=== PATIENT | female | born 1940 | race Caucasian/White ===

== ENCOUNTER 2019-09-19 09:48 | Outpatient (CLI) | payer MEDICARE, BC, SELFPAY ==
--- NOTE | ~2019-09-19 | MMUS_ITS ---
EXAMINATION: MM diagnostic anna LT w ghulam, US breast LT complete HISTORY: New clustered left microcalcifications reported on 09/08/2019 screening mammogram TECHNIQUE: Additional 3-D ML tomosynthesis images and magnification view of the left breast were perf ormed and synthetic 2-D images were generated. CAD analysis was submitted and interpreted. High resol ution complete left breast ultrasound was performed. COMPARISON: 09/08/2019 left digital screening mammogram FINDINGS: MAMMOGRAPHIC FINDINGS: There is a cluster of grouped microcalcifications in the upper mid left breast. There are scattered benign calcifications of the left breast otherwise. Because of the dense heterogeneous stroma, the left breast ultrasound examination was performed. ULTRASOUND: There is an approximately 6 mm irregular hypoechoic area at 9:00 3 cm from the nipple with posterior shadowing. Ultrasound-guided biopsy of this area is recommended. Scattered subcentimeter cysts are noted elsewhere. No other suspicious mass or shadowing is evident. IMPRESSION: 1. 6 mm irregular hypoechoic area with posterior shadowing at 9:00 3 cm from nipple 2. Ultrasound-guided biopsy is recommended at 9:00 3 cm from nipple 3. Stereotactic biopsy of grouped microcalcifications in upper mid right breast BI-RADS category 4, suspicious findings. Dr. Carnes telephoned the report and ultrasound guided and stereotactic biopsy recommendations of 9:00 ultrasound finding and upper mid clustered microcalcifications, respectively, to Blank Baum at Dr. Greenfield's office on 09/19/2019 at 1157 hours Reviewed, dictated and finalized at location A. SERVICES PROFESSIONAL IMPRESSION: 1. 6 mm irregular hypoechoic area with posterior shadowing at 9:00 3 cm from ni pple 2. Ultrasound-guided biopsy is recommended at 9:00 3 cm from nipple 3. Stereotactic biopsy of grouped microcalcifications in upper mid right breast BI-RADS category 4, suspicious findings. Dr. Carnes telephoned the report and ultrasound guided and stereotactic biopsy r ecommendations of 9:00 ultrasound finding and upper mid clustered microcalcific ations, respectively, to Blank Baum at Dr. Greenfield's office on 09/19/2019 at 11 57 hours
== END 2019-09-19 09:49 | disposition home or self-care (01) ==
LOC: CHSIMG 09:51
PROVIDERS: PCP Family Medicine; Visit Provider Internal Medicine
DX: C50.111 Malignant neoplasm of central portion of right female breast (principal); Z17.0 Estrogen receptor positive status [ER+]; Z90.11 Acquired absence of right breast and nipple
CPT/HCPCS: 76641; 77061; 77065; G0279

== ENCOUNTER 2019-10-16 10:04 | Outpatient (CLI) | payer MEDICARE, BC, SELFPAY ==
--- NOTE | ~2019-10-16 | US_ITS ---
US breast LT limited 10/16/2019 12:43 Indication: Left breast abnormality seen on recent ultrasound. Biopsy recommended. Procedure: High-resolution Limited left breast ultrasound Comparison: 09/19/2019 Findings: At 9:00, 3 cm from the nipple, there are 2 adjacent cysts, the largest measuring 4 mm, like ly complicated with low level internal echoes. There is posterior acoustic enhancement. These corresp ond to the area of abnormality seen on prior ultrasound. Biopsy canceled and short-term six-month int erval diagnostic left mammogram and ultrasound recommended for surveillance. Impression: 1: 2 cysts are identified at 9:00, 3 cm from the nipple corresponding to the previous area of abnorma lity on ultrasound performed 09/19/2019. Biopsy canceled. Short-term follow-up in 6 months recommended to ensure stability. BI-RADS CATEGORY 3-PROBABLY BENIGN FINDING RECOMMENDATION: Six-month follow-up diagnostic left mammogram and ultrasound recommended. Reviewed, dictated and finalized at location A. [employer] IN[employer]E [employer]PARER Impression: 1: 2 cysts are identified at 9:00, 3 cm from the nipple corresponding to the pr evious area of abnormality on ultrasound performed 09/19/2019. Biopsy canceled. Short-term follow-up in 6 months recommended to ensure stability. BI-RADS CATEGORY 3-PROBABLY BENIGN FINDING RECOMMENDATION: Six-month follow-up diagnostic left mammogram and ultrasound re commended.
--- NOTE | ~2019-10-16 | MM_ITS ---
MM stereotactic bx LT, MM post biopsy invasive LT, MM stereotactic specimen LT 10/16/2019 11:35 (accession [id number]), 10/16/2019 11:40 (accession [id number]), 10/16/2019 11:36 (accession [id number]) EXAMINATION: MM stereotactic bx LT, MM post biopsy invasive LT, MM s tereotactic specimen LT DATE: Rafael Mazariegos M.D. INDICATION: Abnormal mammogram with [ in the breast. Stereotactic core biopsy is requested evaluate for malignancy.] TECHNIQUE AND FINDINGS: The risks and potential benefits of the procedure were discussed with the patient and written informe d consent was obtained. The patient was placed in the prone position clustered at the table with the left breast in craniocaudal compression, and the area of interest was localized and targeted utilizi ng digital imaging with stereotaxis. After sterile preparation of the skin, 1% lidocaine was utilized for local anesthesia at the skin pun cture site and 1% lidocaine with epinephrine was utilized for deeper local anesthesia/is about the bi opsy site. A 9G Spireon vacuum assisted biopsy needle was advanced to the level of the calcification o f interest from a cephalad approach utilizing stereotactic guidance and a total of 6 tissue core biop sies were obtained. A specimen radiograph demonstrates that the calcifications of interest are included within the tissue cores. A tissue marker clip was then placed at the biopsy site. The needle was removed and hemosta sis was achieved. The patient tolerated the procedure well and there is no evidence of significant i mmediate complication. The patient was given verbal as well as written postprocedural instructions p rior to discharge from the department. Tissue cores were submitted to surgical pathology for histolo gic analysis. A 2-view left unilateral digital mammogram was obtained post procedure and this demonstrates that the tissue marker clip is in expected position.] IMPRESSION: 1. Successful stereotactic biopsy of calcifications in the upper outer quadrant of the right breast, followed by tissue marker clip placement. Please refer to pathology report for histologic analysis. Reviewed, dictated and finalized at location A. EL OT IMPRESSION: 1. Successful stereotactic biopsy of calcifications in the upper outer quadran t of the right breast, followed by tissue marker clip placement. Please refer to pathology report for histologic analysis. IMPRESSION: 1. Successful stereotactic biopsy of calcifications in the upper outer quadran t of the right breast, followed by tissue marker clip placement. Please refer to pathology report for histologic analysis.
== END 2019-10-16 10:05 | disposition home or self-care (01) ==
PROVIDERS: PCP Family Medicine; Visit Provider Surgery
DX: D05.12 Intraductal carcinoma in situ of left breast (principal)
CPT/HCPCS: 19081; 76642; 88305; 88342

== ENCOUNTER 2019-12-11 00:23 | Day surgery (SDC) | payer MEDICARE, BC, SELFPAY ==
[2019-12-08 15:36] VITALS: BMI 17.9
--- NOTE | 2019-12-10 20:37 | PM.IMHP ---
H&P: HPI History of Present Illness Chief complaint: DCIS Left Breast Narrative: Rosi Abebe is a 79 year old female who in 2010 had right breast cancer. This was treated with right mastectomy. She continues to take Aromasin. She was noted to have left breast microcalcifications. 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 After discussion, she is taken to surgery now for left breast mastectomy with left axillary sentinel node biopsy. Review of Systems Review of Systems: All systems reviewed & are unremarkable except as noted in HPI and below Constitutional: Constitutional: Denies headache(s) ENT: Denies headache(s) Cardiovascular: Cardiovascular: Denies chest pain and Denies dyspnea Respiratory: Respiratory: Denies cough and Denies dyspnea Gastrointestinal: Gastrointestinal: Denies bloating, Denies constipation and Denies nausea Neurologic: Denies confusion and Denies headache(s) Psychiatric: Psychiatric: Denies confusion [facility] Social History Social History Smoking status: Former smoker Smoking end date: 08/20/15 Alcohol intake: current Meds Home Medications and Allergies Home Medications Medication Instructions Recorded Confirmed Type aloe vera 5,000 mg capsule 5,000 mg PO DAILY cap 10/06/19 12/08/19 History aspirin 81 mg tablet,delayed 81 mg PO DAILY 10/06/19 12/08/19 History release cholecalciferol (vitamin D3) 12.5 1,000 unit PO DAILY 10/06/19 12/08/19 History mcg/5 mL (500 unit/5 mL) oral liquid coenzyme Q10 100 mg capsule 100 mg PO DAILY 10/06/19 12/08/19 History glucosamine sulfate 500 mg tablet 500 mg PO BID 10/06/19 12/08/19 History multivitamin 1 tablet PO DAILY 10/06/19 12/08/19 History Allergies Allergy/AdvReac Type Severity Reaction Status Date / Time cephalexin Allergy Severe Gastrointestinal Verified 12/08/19 15:42 Upset clindamycin Allergy Severe Gastrointestinal Verified 12/08/19 15:43 Upset Exam Const: General: comfortable, no acute distress, alert and awake HENMT: Head: normocephalic and atraumatic Mouth: Yes Normal oral and palatal mucosa present Eyes: Conjunctivae: conjunctivae normal Pupils: Equal, round and reactive pupils present EOM: EOMs intact bilaterally Neck: Neck: normal visual inspection, no lymphadenopathy and nontender Chest: Breast/axilla inspection: normal inspection of the axillae and abnormal inspection of the breast (left mastectomy) Breast/axilla palpation: normal palpation of the breasts (left breast with scars, no masses; right mastectomy) and normal palpation of the axillae Resp: Effort & Inspection: normal respiratory effort Auscultation: clear to auscultation bilaterally Cardio: Rate: regular rate Rhythm: regular rhythm Heart sounds: no gallops, no murmurs and no rubs GI: Inspection: non-distended GI Palp: Yes Soft to palpation, No Tenderness to palpation present (GI), No Hepatomegaly present and No Splenomegaly present Skin: Lesions: no lesions Rashes: no rashes Neuro: General: no focal motor deficits and CN's II-XI intact bilaterally Cranial nerves: Yes Equal, round and reactive pupils present, Yes Bilaterally intact EOM present, Yes facial symmetry and Yes Midline tongue present Speech: normal speech Motor exam (neuro): 5/5 motor strength present throughout and Motor abnormalities not present Extrem: General: no clubbing, cyanosis or edema and edema Psych: Affect: normal affect Thought process: Normal thought process present Insight: Good insight present (Psych) Assessment and Plan Assessment and plan (1) Ductal carcinoma in situ (DCIS) of left breast: Code(s): D05.12 - Intraductal carcinoma in situ of left breast Status: Chronic Assessment and Plan: After discussion, we will proceed with left mastectomy. The procedure, risks, benefits were discussed. She also has comedonecrosis so will do left axillary sentinel node b
[2019-12-11] VITALS (10 sets, daily range): BP systolic 111–161; BP diastolic 50–80; PULSE 67–86; RESP 12–20; TEMP 36.2–37.2; O2SAT 95–100
--- NOTE | ~2019-12-11 | NM_ITS ---
EXAMINATION: NM sentinel node inject only INDICATION: Left breast cancer TECHNIQUE: 1.161 mCi Tc 99m Lymphoseek were injected in 4 aliquots in the upper outer quadrant of the breast near the areola. No images were obtained. IMPRESSION: 1. Status post left breast sentinel lymph node radiopharmaceutical injection. Reviewed, dictated and finalized at location A.
--- NOTE | 2019-12-11 07:37 | ECG_ITS ---
Measurements Intervals [place] Rate: 76 P: 74 WA: 157 QRS: -52 QRSD: 86 T: 78 QT: 391 QTc: 441 Interpretive Statements SINUS RHYTHM WITH SINUS ARRHYTHMIA NORMAL ECG Electronically Signed On 12-11-2019 9:31:21 CDT by Jordan Christian D.O.
--- NOTE | 2019-12-11 08:05 | P.PNAN_ITS ---
Anes - Initial Pre Proc Eval Procedure: Operation Date: 12/11/19 10:30 Proposed Procedures p Left Axillary [place] Lymph Node Biopsy, Left Breast Mastectomy - Vu Rutherford MD Date/Time: 12/11/19 08:05 Surgeon: Vu Rutherford MD Pre Op Diagnosis: DCIS Left Breast Patient Data Age: 79 Gender: F Height: 1.64 m Weight: 48 kg Allergies Allergy/AdvReac Type Severity Reaction Status Date / Time cephalexin Allergy Severe Gastrointestinal Verified 12/08/19 15:42 Upset clindamycin Allergy Severe Gastrointestinal Verified 12/08/19 15:43 Upset Home Medications Medication Instructions Recorded Confirmed Type aloe vera 5,000 mg capsule 5,000 mg PO DAILY cap 10/06/19 12/08/19 History aspirin 81 mg tablet,delayed 81 mg PO DAILY 10/06/19 12/08/19 History release cholecalciferol (vitamin D3) 12.5 1,000 unit PO DAILY 10/06/19 12/08/19 History mcg/5 mL (500 unit/5 mL) oral liquid coenzyme Q10 100 mg capsule 100 mg PO DAILY 10/06/19 12/08/19 History glucosamine sulfate 500 mg tablet 500 mg PO BID 10/06/19 12/08/19 History multivitamin 1 tablet PO DAILY 10/06/19 12/08/19 History Patient hx anesthesia problems: none Family hx anesthesia problems: none PMFSH Past Medical History Medical History (Updated 12/11/19 @ 08:06 by Shawn Wade MD) Breast cancer Cyst of left breast Ductal carcinoma in situ (DCIS) of left breast History of right breast cancer Surgical History Surgical History H/O hemorrhoidectomy History of appendectomy History of mastectomy, total History of total hysterectomy Social History Social History Smoking status: Former smoker Smoking end date: 08/20/15 Alcohol intake: current Anes - Eval Final PreProcedure Day of Procedure 12/11/19 08:05 Patient weight: normal Heart: regular rate and rhythm Lungs: clear to auscultation and normal air movement Airway: Mallampati scale class II Neurological: alert and oriented Last oral intake: >/= 8 hours ASA classification: III Emergent: no Anesthetic plan: proceed Anesthesia type and monitoring: general LMA Informed Consent: The patient's anesthetic plan and its attendant risks and benefits were discussed with the patient/family/POA. Questions were solicited and answers provided to the satisfaction of the patient/family/POA.
[2019-12-11] MEDS: LACTATED RINGERS 1,000 ML 30 ML IV CONT ×2 (08:48→13:18)
--- NOTE | 2019-12-11 08:56 | SUR.PREOP ---
9500- CALLED DR. ZULUAGA OFFICE TO SPEAK TO HIM ABOUT PT GOING TO [facility]. PASTE WORKER TOOK MESSAGE AND STATED SHE WILL GET THE MESSAGE OUT TO DR. ZULUAGA. A WAITING CALL BACK
--- NOTE | 2019-12-11 10:32 | WPDHPUPDATE1 ---
History and Physical Update Update Date/Time: 12/11/19 10:32 History and Physical has been reviewed, including an updated exam of the patient. There are NO changes in the patient's condition. Risks, benefits, and alternatives have been discussed and questions answered. Patient agrees to proceed with procedure.
[2019-12-11] MEDS: ceFAZolin 2 GM/D5W 50 ML 2 GM/50 ML BAG IVPB (10:37)
[2019-12-11] MEDS: ISOSULFAN BLUE 1% INJ 5 ML VIAL SUB-Q (11:15)
--- NOTE | 2019-12-11 13:31 | PM.PROC ---
Procedure Note - Detailed Date of procedure: 12/11/19 Pre-op diagnosis: DCIS Left Breast DCIS left breast with comedonecrosis Post-op diagnosis: same Procedure performed: Left axillary sentinel lymph node biopsy, left mastectomy Description of procedure: The patient was taken to surgery and induced into general anesthesia. She had previously undergone injection of radio isotope under the left nipple in x-ray. The left breast, left arm, and axilla were prepped and draped so that the left arm was sterile and in the field. It was also mobile. Lymphazurin dye was then infiltrated under the left nipple. Gentle breast massage was carried out for 2-3 minutes. The navigator was used and an area of high isotope emission was noted high in the left axilla. This appeared to be quite a stretch from where the mastectomy incision would be, so I elected to use a separate axillary incision for the sentinel node biopsy. A hairline axillary incision was made that was approximately 6 cm in length. Dissection through the subcutaneous was carried out until we entered the area of the axillary fat. Using the navigator I dissected to 1 of the high isotope emitting nodes. This was dissected free from the surrounding axillary tissue with cautery and clips. Although it had a very high isotope emission, it was not stained blue. This was sent as axillary sentinel lymph node 1. I then used the navigator and targeted a 2nd high isotope emitting node. I dissected this node free. It was stained blue but was not as large as the 1st sentinel lymph node. It had high isotope emission. This was sent labeled left axillary sentinel lymph node 2. I again checked with the navigator and found a 3rd sentinel lymph node with high isotope emission. This was a small node but had high isotope emission. It did not have any dye staining. This was sent as sentinel lymph node 3. I checked further for palpable nodes and isotope emitting nodes. None were seen. No blue dye stained nodes were found either. I made the axilla hemostatic and irrigated with warm saline. It was closed in layers with subcutaneous interrupted 3 0 Monocryl suture. The skin was closed with running 3 0 Monocryl subcuticular skin suture. The axilla was then quarantined with laparotomy sponges and blue towels. We turned our attention to the left breast. A Sin type ellipse was drawn on the left breast taking the nipple and most of the scars from previous breast biopsies. I then made the incision on the upper portion of the ellipse. Cautery was used for hemostasis. The superior flap was then raised using the cautery. The superior flap was raised to the lateral edge of the sternum, just below the clavicle, and to the serratus anterior muscle laterally. Cautery was used for dissection and hemostasis throughout. I then changed sides with the 1st preschool teacher's assistant. The skin incision for the inferior flap was made. Cautery was again used for hemostasis. In similar fashion, the inferior flap was raised to the insertion of the rectus muscle and with this same medial and lateral borders. I changed positions back again with the 1st preschool teacher's assistant. The breast tissue was then taken off the pectoralis major muscle taking the pectoralis fascia with the specimen. Cautery was used for dissection and hemostasis. Eventually the attachments of the breast to the Serratus anterior muscle were divided and the breast specimen was completely freed. It was sent to pathology labeled left mastectomy specimen. We then reviewed the mastectomy and achieved meticulous hemostasis. Mastectomy wound was irrigated with warm saline. Two #15 Fr Matty drains were placed under the mastectomy flaps. The more lateral placement was under the superior flap. The more medial placement was under the inferior flap but also covered some of the superior flap. Both drains were sutured to the skin with 2 0 silk. The superior and inferior flaps were then closed 1st with interrupted 3
[2019-12-11] MEDS: ONDANSETRON INJ 4 MG/2 ML VIAL IV PUSH (13:42)
--- NOTE | 2019-12-11 13:54 | SUR.PHASEI ---
1354 - dr. zelaya at bedside talking with pt
--- NOTE | 2019-12-11 14:31 | PC.NURSE ---
This patient, Rosi Abebe, was admitted to [facility] Surg Room 307-01. Patient/family oriented to hospital policies and general routines including ID bracelet, bed and alarms, visiting hours, pain management, procedures, bathroom and other care routines, personal items, smoking policy, room service/diet, and visiting hours. Valuables list has been completed. Information on how to activate the Rapid Response Team has been discussed. Patient/Family are encouraged to report perceived risks to care and to ask questions if they do not understand what they are told or what they should do.
[2019-12-11] MEDS: SENNA/DOCUSATE SODIUM TABLET 2 TAB PO (20:44)
[2019-12-11] MEDS: ENOXAPARIN 30 MG/0.3 ML SYRINGE SUB-Q (20:44)
[2019-12-12 01:45] VITALS: BP 114/50; PULSE 71; RESP 16; TEMP 36.8; O2SAT 95
[2019-12-12 06:00] VITALS: BP 110/54; PULSE 72; RESP 18; TEMP 36.8; O2SAT 96
[2019-12-12] MEDS: ASPIRIN 81 MG ENTERIC TABLET PO (09:06)
[2019-12-12] MEDS: ENOXAPARIN 30 MG/0.3 ML SYRINGE SUB-Q (09:06)
--- NOTE | 2019-12-12 09:34 | P.DS_ITS ---
DS: Diagnosis Admitting Diagnosis Admitting Diagnosis: Intraductal carcinoma in situ of left breast Discharge Diagnosis (1) Ductal carcinoma in situ (DCIS) of left breast: Code(s): D05.12 - Intraductal carcinoma in situ of left breast Status: Chronic Assessment and Plan: patient underwent left total mastectomy with left axillary sentinel lymph node biopsy on December 11, 2019. (2) History of right breast cancer: Code(s): Z85.3 - Personal history of malignant neoplasm of breast Status: Chronic Assessment and Plan: Patient had right mastectomy in 2010, continues to take aromasin. DS: Summary Time Spent with Patient Time attestation: Total time spent providing and/or coordinating discharge services: Patient is a 79-year-old woman who was noted to have microcalcifications in the upper left breast. She had in 2010 a right mastectomy for breast cancer. She had a stereotactic biopsy of these microcalcifications. A showed ductal carcinoma in situ with comedonecrosis. After discussion in the office, she was taken to surgery on December 11, 2019 for left mastectomy with left axillary sentinel lymph node biopsy. The surgery went well. She was observed overnight and her left arm was kept in a sling. She has [address] She was comfortable, taking no analgesics, and able to be discharged on postop day 1. In good condition. Exam Chest: Chest palpation & inspection: abnormal inspection of the chest ( Left mastectomy wound healing well, flap some viable, no hematoma) DS: Data Data Completed and Pending Pending studies at discharge: Pending at discharge 12/11/19 11:25 Surgical [PTH] Routine Surgical [PTH] Routine Surgical [PTH] Routine Surgical [PTH] Routine Labs on day of discharge: Labs from last 24 hours 12/11/19 08:32 Blood Type O Positive Antibody Screen Negative Discharge Plan Discharge Patient Disposition: Home, Self-Care Discharge Instructions: * Ambulate 3-4 x per day and as tolerated. * No lifting over 15-20lbs. * May bathe or shower. * Stairs are OK. * May drive a car in 3 days. * Remove any dressings before shower and replace after. * Empty each CRIS drain and record output in mL on a 24 hour basis. Bring the record of daily drain outputs to office visit on December 17. * Continue to use the sling except when showering until SundayDecember 14. Follow-up/Referrals: Vu Rutherford MD [Physician] - 12/18/19 8:30 am ( Call office to make appointment) Discharge Medications: Continued aloe vera 5,000 mg capsule 5,000 mg PO DAILY RF: 0 cholecalciferol (vitamin D3) 500 unit/5 mL liquid 1,000 unit PO DAILY RF: 0 coenzyme Q10 100 mg capsule 100 mg PO DAILY RF: 0 glucosamine sulfate [Glucosamine] 500 mg tablet 500 mg PO BID RF: 0 multivitamin [Daily Multi-Vitamin] Tablet 1 tablet PO DAILY RF: 0 aspirin [Adult Aspirin Regimen] 81 mg tablet,delayed release (DR/EC) 81 mg PO DAILY RF: 0
[2019-12-12 10:00] VITALS: BP 110/38; PULSE 77; RESP 18; TEMP 36.9; O2SAT 97
--- NOTE | 2019-12-12 19:27 | PC.NURSE ---
Received call at 1623 from patient. She stated that when her daughter disconnected the safety pin, the CRIS drain pulled on the site. Now site is draining and gauze pad has been changed since her shower. She is concerned. I stated that she should be fine, but monitor CRIS drain site and output. Patient stated the suture is in intact and drain is working appropriately. She stated that she will continue to monitor and call with any other questions. Patient has called two more times stating the same information.
== END 2019-12-12 11:00 | disposition home or self-care (01) ==
LOC: ANHSURGERY 08:28 → ANH3MEDSUR 14:19
PROVIDERS: PCP Family Medicine; Visit Provider Surgery
PROC: (CPT 19303; principal; 2019-12-11 10:30)
DX: D05.12 Intraductal carcinoma in situ of left breast (principal); Z90.11 Acquired absence of right breast and nipple; Z79.82 Long term (current) use of aspirin; Z87.891 Personal history of nicotine dependence; Z79.811 Long term (current) use of aromatase inhibitors
CPT/HCPCS: 19303; 38525; 36415; 38792; 86850; 86900; 86901; 88307; 88342; 93005; A4565; A9270; A9520; C1713; J0690; J1100; J1650; J1885; J2405; J2704; J3010; J7120

== ENCOUNTER 2020-07-06 07:58 | Outpatient (CLI) | payer MEDICARE, SELFPAY ==
[2020-07-06 08:11] LABS: Basophils Absolute Auto 0.06 K/mm3 (0.00-0.10); Basophils Percent Auto 1.4 % (0.0-1.0); Eosinophils Absolute Auto 0.23 K/mm3 (0.02-0.50); Eosinophils Percent Auto 5.2 % (1.0-6.0); Hematocrit 38.8 % (35.0-42.0); Immature Granulocyte Absolute 0.02 K/mm3 (0.00-0.00); Immature Granulocyte Percent A 0.5 % (0.0-0.0); Lymphocytes Absolute Auto 0.96 K/mm3 (1.10-4.50); Lymphocytes Percent Auto 21.8 % (18.0-42.0); Mean Corpuscular HGB Conc 33.5 g/dL (32.0-36.0); Mean Corpuscular Hemoglobin 31.1 pg (27.0-31.0); Mean Corpuscular Volume 92.8 fL (78.0-102.0); Mean Platelet Volume 8.3 fl (9.2-11.8); Monocytes Absolute Auto 0.43 K/mm3 (0.10-0.90); Monocytes Percent Auto 9.8 % (2.0-11.0); Neutrophils Absolute Auto 2.7 K/mm3 (1.7-7.2); Neutrophils Percent Auto 61.3 % (50.0-70.0); Platelet Count Result 298 K/mm3 (150-420); Red Blood Count 4.18 M/mm3 (4.20-5.40); Red Cell Distribution Width 12.7 % (11.6-14.4); White Blood Count 4.4 K/mm3 (4.8-10.8)
[2020-07-06 09:26] LABS: Alanine Aminotransferase 25 U/L (14-59); Albumin Level 4.3 g/dL (3.4-5.0); Alkaline Phosphatase 70 U/L (46-116); Anion Gap 5 mmol/L (8-16); Aspartate Amino Transferase 20 U/L (15-37); Bilirubin,Total 0.5 mg/dL (0.00-1.00); Blood Urea Nitrogen 11 mg/dL (7-18); Calcium 9.4 mg/dL (8.5-10.1); Carbon Dioxide 29 mmol/L (21-32); Chloride 96 mmol/L (98-108); Estimated Glomerular Filt Rate > 60; Glucose 87 mg/dL (70-99); Osmolality Calculated 268 mOsm/kg (285-295); Potassium 4.4 mmol/L (3.5-5.1); Sodium 130 mmol/L (136-145); Total Protein 7.7 g/dL (6.4-8.2)
== END 2020-07-06 07:59 | disposition home or self-care (01) ==
LOC: CHSLAB 08:00
PROVIDERS: PCP Family Medicine; Visit Provider Family Medicine
DX: M85.80 Other specified disorders of bone density and structure, unspecified site (principal); Z00.00 Encounter for general adult medical examination without abnormal findings; N26.1 Atrophy of kidney (terminal); E03.9 Hypothyroidism, unspecified
CPT/HCPCS: 36415; 80053; 84443; 85025